=== PATIENT | female | born 1950 | race Caucasian/White ===

== ENCOUNTER → 2020-08-28 | Outpatient (CLI) | payer MEDICARE, OTHER ==
[~2020-08-28] MED LIST: AMITRIPTYLINE100 MG PO; CYMBALTA60 MG PO; DICYCLOMINE HCL20 MG PO; IBU800 MG PO; K-DUR TAB 10 M10 MEQ PO; LEVOTHYROXINE200 MC1 PO; LOMOTIL 2.5-0.1 EACH PO; NEURONTIN800 MG PO; NORVASC10 MG PO; PRINIVIL10 MG PO; PROTONIX40 MG PO; SPIRONOLACTONE50 MG PO; TIZANIDINE HCL4 MG PO
== END ==
LOC: LAB 10:03
DX: E05.80 Other thyrotoxicosis without thyrotoxic crisis or storm (principal)
CPT/HCPCS: 36415; 84439; 84443; 84481

== ENCOUNTER → 2021-05-29 | Outpatient (CLI) | payer MEDICARE, OTHER | LOC: EXRD 10:30 | DX: Z12.31 Encounter for screening mammogram for malignant neoplasm of breast (principal); Z90.710 Acquired absence of both cervix and uterus; Z90.12 Acquired absence of left breast and nipple; Z85.3 Personal history of malignant neoplasm of breast; M85.852 Other specified disorders of bone density and structure, left thigh | CPT/HCPCS: 77063; 77067; 77080 ==

== ENCOUNTER → 2021-07-21 | Outpatient (CLI) | payer OTHER | LOC: EXRD 13:25 | DX: M25.531 Pain in right wrist (principal); M79.672 Pain in left foot; M81.0 Age-related osteoporosis without current pathological fracture | CPT/HCPCS: 73110; 73630; 73660 ==

== ENCOUNTER → 2021-09-23 | Outpatient (CLI) | payer OTHER | LOC: KOH-I 14:44 | DX: M79.671 Pain in right foot (principal); M79.672 Pain in left foot; M19.071 Primary osteoarthritis, right ankle and foot; M19.072 Primary osteoarthritis, left ankle and foot | CPT/HCPCS: 73630 ==

== ENCOUNTER → 2021-10-01 | Outpatient (CLI) | payer MEDICARE, OTHER ==
[~2021-10-01] MED LIST changes: +AMITRIPTYLINE H75 MG PO; +BACLOFEN10 MG PO; +DICLOFENAC GEL 1% TOP; +LEVOTHYROXINE175 MCG PO; +LORATADINE10 MG PO; +PERCOCET 10-321 EACH PO; +PHENERGAN 25 MG25 M1 PO; +XANAX1 MG PO
== END ==
LOC: KOH-I 13:52
DX: I73.9 Peripheral vascular disease, unspecified (principal)
CPT/HCPCS: 93925

== ENCOUNTER → 2021-10-06 | Outpatient (CLI) | payer MEDICARE, OTHER ==
[2021-10-06 14:01] LABS: HEMOGLOBIN 11.7 gm/dl (12.3-15.3); RED BLOOD COUNT 3.82 M/UL (4.00-5.10); WHITE BLOOD COUNT 3.8 K/UL (4.5-11.0)
[2021-10-06 14:18] LABS: BUN/CREATININE RATIO 9 (0-10)
== END ==
LOC: OPSV2 12:30
PROVIDERS: Podiatrist Foot & Ankle Surgery
DX: Z01.818 Encounter for other preprocedural examination (principal); R00.1 Bradycardia, unspecified
CPT/HCPCS: 36415; 80048; 83036; 85027; 93005

== ENCOUNTER → 2021-10-17 | Day surgery (SDC) | payer MEDICARE, MEDICAID ==
[~2021-10-17] VITALS: Ht 157.5 cm; Wt 76.2 kg
== END | disposition home or self-care (01) ==
LOC: OR 10-15 07:30
DX: M20.42 Other hammer toe(s) (acquired), left foot (principal); M89.9 Disorder of bone, unspecified; M19.072 Primary osteoarthritis, left ankle and foot; M24.575 Contracture, left foot; G58.8 Other specified mononeuropathies; G89.29 Other chronic pain; F41.9 Anxiety disorder, unspecified; K21.9 Gastro-esophageal reflux disease without esophagitis; I10 Essential (primary) hypertension; K58.9 Irritable bowel syndrome, unspecified; E78.5 Hyperlipidemia, unspecified; E03.9 Hypothyroidism, unspecified; M06.9 Rheumatoid arthritis, unspecified; E10.9 Type 1 diabetes mellitus without complications; Z87.891 Personal history of nicotine dependence; Z88.5 Allergy status to narcotic agent; Z88.2 Allergy status to sulfonamides; Z79.899 Other long term (current) drug therapy; Z20.822 Contact with and (suspected) exposure to COVID-19
CPT/HCPCS: 73630; 76000; 82962; J0690; J1100; J2001; J2250; J2405; J2704; J2710; J2795; J3010; J3370; J7030; J7120

== ENCOUNTER → 2021-12-09 | Outpatient (CLI) | payer MEDICARE, OTHER | LOC: KOH-I 10:38 | DX: T84.098A Other mechanical complication of other internal joint prosthesis, initial encounter (principal); M85.872 Other specified disorders of bone density and structure, left ankle and foot | CPT/HCPCS: 73630 ==

== ENCOUNTER → 2022-02-19 | Outpatient (CLI) | payer MEDICARE, OTHER ==
[~2022-02-19] MED LIST changes: +ASPIRIN325 MG PO; +PROPRANOLOL HCL10 MG PO; +VITAMIN C 500500 MG PO
[2022-02-19 14:08] LABS: HEMOGLOBIN 12.1 gm/dl (12.3-15.3); RED BLOOD COUNT 3.97 M/UL (4.00-5.10); WHITE BLOOD COUNT 4.2 K/UL (4.5-11.0)
[2022-02-19 14:25] LABS: BUN/CREATININE RATIO 14 (0-10)
== END ==
LOC: OPSV2 12:30
PROVIDERS: Podiatrist Foot & Ankle Surgery
DX: Z01.812 Encounter for preprocedural laboratory examination (principal)
CPT/HCPCS: 80048; 85027